=== PATIENT | female | born 1965 | race Caucasian/White ===

== ENCOUNTER 2021-03-22 11:21 | Emergency (ER) | payer OTHER ==
[~2021-03-22] VITALS: Ht 154.9 cm; Wt 67.0 kg
[2021-03-22] MEDS ORDERED: FAMOTIDINE 20MG TABLET PO ONE (12:45)
[2021-03-22] MEDS ORDERED: DEXAMETHASONE 10 MG/ML VIAL IM ONE (12:45)
[2021-03-22] MEDS ORDERED: DIPHENHYDRAMINE 50MG/ML VIAL IM ONE (12:45)
[2021-03-22 15:29] LABS: BASOPHILS % 0.4 % (0.0-2.0); CHLORIDE 105 mEq/L (98-107); EOSINOPHILS % 0.7 % (0.0-5.0); HEMATOCRIT. 38.5 % (36.0-48.0); HEMOGLOBIN. 13.4 g/dL (12.0-16.0); LYMPHOCYTES % 17.2 % (20.0-50.0); MEAN CORPUSCULAR HEMOGLOBIN 31.3 pg (28.0-32.0); MEAN CORPUSCULAR VOLUME 90.2 fL (81.0-99.0); MEAN PLATELET VOLUME 7.6 fl (7.4-10.4); MONOCYTES % 2.7 % (2.0-8.0); PLATELET 338 x1000/uL (130-400); RED BLOOD CELL COUNT 4.27 mill/uL (4.2-5.4); RED CELL DISTRIBUTION WIDTH 13.1 % (11.6-14.6)
[2021-03-22 16:15] LABS: CLARITY URINE CLEAR (CLEAR); COLOR URINE YELLOW (YELLOW); KETONES URINE NEGATIVE (NEGATIVE); LEUKOCYTE ESTERASE URINE TRACE (NEGATIVE); NITRITE URINE NEGATIVE (NEGATIVE); OCCULT BLOOD URINE NEGATIVE (NEGATIVE); PH URINE 6.5 (4.5-8.0); PROTEIN URINE NEGATIVE (NEGATIVE); SPECIFIC GRAVITY URINE 1.005 (1.005-1.030); UROBILINOGEN URINE 0.2 E.U./dL (0.2-1.0)
[2021-03-22 20:59] VITALS: BP 133/81
== END 2021-03-22 21:03 | disposition short-term general hospital (02) ==
LOC: ER 11:21 → CANBEDREQ 22:06
DX: T78.49XA Other allergy, initial encounter (principal); T78.3XXA Angioneurotic edema, initial encounter; E11.9 Type 2 diabetes mellitus without complications; I10 Essential (primary) hypertension; Y84.8 Other medical procedures as the cause of abnormal reaction of the patient, or of later complication, without mention of misadventure at the time of the procedure; Y92.018 Other place in single-family (private) house as the place of occurrence of the external cause
CPT/HCPCS: 36415; 71045; 80053; 81003; 85025; 93005; 96372; 99285; J1100; J1200